=== PATIENT | female | born 1975 ===

== ENCOUNTER 2017-12-29 12:22 | Emergency (ER) | payer MEDICAID ==
[2017-12-29 12:44] VITALS: BP 120/84; TEMP 98.2
[2017-12-29 12:57] VITALS: O2SAT 100
--- NOTE | 2017-12-29 13:00 | C.PDOC ---
History Of Present Illness 42 y/o female presents to ED c/o chest pain, and shortness of breath since yesterday. Notes she had to miss work yesterday because of her symptoms. Denies fever or other complaints. Time Seen by Provider: 12/29/17 12:47 Chief Complaint (Nursing): Shortness Of Breath History Per: Patient History/Exam Limitations: no limitations Past Medical History Reviewed: Historical Data, Nursing Documentation, Vital Signs Vital Signs: Last Vital Signs Temp 98.2 F 12/29/17 12:41 Pulse 66 12/29/17 13:30 Resp 17 12/29/17 13:30 BP 120/84 12/29/17 12:41 Pulse Ox 100 12/29/17 13:30 - Medical History PMH: Asthma Family History: States: Unknown Family Hx - Social History Hx Tobacco Use: Yes Hx Alcohol Use: Yes Hx Substance Use: No - Immunization History Hx Tetanus Toxoid Vaccination: No Hx Influenza Vaccination: No Hx Pneumococcal Vaccination: No Review Of Systems Except As Marked, All Systems Reviewed And Found Negative. Constitutional: Negative for: Fever, Chills Cardiovascular: Positive for: Chest Pain Respiratory: Positive for: Shortness of Breath Physical Exam - Physical Exam Appears: Non-toxic, No Acute Distress, Other (Pt is taking selfie in her bed) Skin: Normal Color, Warm, Dry Head: Atraumatic, Normacephalic Eye(s): bilateral: Normal Inspection Neck: Normal ROM, Supple Chest: Symmetrical Cardiovascular: Rhythm Regular, No Murmur Respiratory: Normal Breath Sounds, No Rales, No Rhonchi, No Wheezing Gastrointestinal/Abdominal: Soft, No Tenderness Extremity: Normal ROM Neurological/Psych: Oriented x3, Normal Speech ED Course And Treatment ECG: Interpreted By Me, Viewed By Me ECG Rhythm: Sinus Rhythm Rate From EC O2 Sat by Pulse Oximetry: 100 Pulse Ox Interpretation: Normal Medical Decision Making Medical Decision Making: Pt refused work up. Pt is requesting excuse note for work. The patient declines to have further medical evaluation and treatment and wishes to leave the Emergency Department. This action is against my medical advice to the patient, and with informed refusal. The patient was told that evaluation and treatment are necessary and a full explanation of the rationale was given. The risks of leaving were explained to the patient and include, but are not limited to, worsening of known or currently unknown conditions, permanent disability and from undiagnosed or untreated conditions The patient has the capacity to make this informed decision and understands the clinical situation and my explanation of the risks of leaving. The patient voluntarily accepts these risks , and a signed AMA form documenting our conversation was obtained. The patient was given the opportunity to ask questions and reconsider. The patient was encouraged to return to the Emergency Department at any time for further care. Disposition - Disposition Referrals: Juancarlos Ramsey MD [Staff Provider] - Disposition: AGAINST MEDICAL ADVICE Disposition Time: 12:58 Condition: UNKNOWN Additional Instructions: return to er with worsening symptoms or concerns. you are declining all labs and imaging. you are able to return to any er with worsening symtoms or concerns. Forms: [facility] ([place]), Work Excuse - Clinical Impression Clinical Impression: Chest pain, Encounter to obtain excuse from work, Left against medical advice - Scribe Statement The provider has reviewed the documentation as recorded by the Scribe KP All medical record entries made by the Scribe were at my direction and personally dictated by me. I have reviewed the chart and agree that the record accurately reflects my personal performance of the history, physical exam, medical decision making, and the department course for this patient. I have also personally directed, reviewed, and agree with the discharge instructions and disposition.
[2017-12-29 13:39] VITALS: PULSE 66; RESP 17
== END 2017-12-29 13:30 | disposition left against medical advice (07) ==
LOC: C.ER 12:22
DX: R07.9 Chest pain, unspecified (principal)

== ENCOUNTER 2018-01-21 15:51 | Emergency (ER) | payer MEDICAID ==
[2018-01-21 16:06] VITALS: BMI 33.9
--- NOTE | 2018-01-21 16:59 | C.PDOC ---
History Of Present Illness 42yo female, otherwise well, comes to ER stating she had an episode of chest pain, described as chest tightness, with associated shortness of breath while at work. Patient also reports nausea and states her "throat and mouth went dry. " She denies any chest pain at present, and denies any vomiting, weakness, and offers no additional medical complaints. Time Seen by Provider: 01/21/18 16:21 Chief Complaint (Nursing): Chest Pain History Per: Patient History/Exam Limitations: no limitations Onset/Duration Of Symptoms: Hrs Current Symptoms Are (Timing): Gone Quality: Tightness Associated Symptoms: Nausea. denies: Dyspnea, Diaphoresis, Syncope Additional History Per: Patient Past Medical History Reviewed: Historical Data, Nursing Documentation, Vital Signs Vital Signs: Last Vital Signs Temp 98.2 F 01/21/18 16:12 Pulse 81 01/21/18 17:46 Resp 16 01/21/18 17:46 BP 148/73 01/21/18 17:46 Pulse Ox 98 01/21/18 19:00 - Medical History PMH: Asthma Surgical History: No Surg Hx Family History: States: Unknown Family Hx - Social History Hx Tobacco Use: Yes Hx Alcohol Use: Yes Hx Substance Use: Yes (weed) - Immunization History Hx Tetanus Toxoid Vaccination: No Hx Influenza Vaccination: No Hx Pneumococcal Vaccination: No Review Of Systems Except As Marked, All Systems Reviewed And Found Negative. Constitutional: Negative for: Fever, Chills Cardiovascular: Positive for: Chest Pain Respiratory: Positive for: Shortness of Breath Gastrointestinal: Positive for: Nausea. Negative for: Vomiting, Abdominal Pain Neurological: Negative for: Weakness, Numbness Physical Exam - Physical Exam Appears: Non-toxic, No Acute Distress Skin: Normal Color, Warm Head: Atraumatic, Normacephalic Eye(s): bilateral: Normal Inspection Oral Mucosa: Moist Neck: Normal ROM, Supple Chest: Symmetrical, No Tenderness Cardiovascular: Rhythm Regular Respiratory: Normal Breath Sounds, No Rales, No Rhonchi, No Wheezing Gastrointestinal/Abdominal: Normal Exam, Soft, No Tenderness Back: Normal Inspection Extremity: Normal ROM, No Pedal Edema Neurological/Psych: Oriented x3 ED Course And Treatment - Laboratory Results Result Diagrams: 01/21/18 17:07 01/21/18 17:07 ECG: Interpreted By Me, Viewed By Me ECG Rhythm: Sinus Rhythm ECG Interpretation: Normal Interpretation Of ECG: Normal intervals. Normal axis. No ST/T wave abnormalities Rate From EC O2 Sat by Pulse Oximetry: 98 (RA) Pulse Ox Interpretation: Normal Medical Decision Making Medical Decision Making: Assessment: Chest tightness, shortness of breath Plan: * Labs * EKG * Aspirin 81mg PO * Urinalysis 19:00 Labs reviewed, no clinically significant findings noted. Patient to be signed out to Dr. Baker pending repeat troponin at 9p and final disposition. Disposition Discussed With : Fidencio Baker Doctor Will See Patient In The: ED - Disposition Disposition Time: 19:00 Condition: STABLE Forms: [employer] (Turkmen) - Clinical Impression Clinical Impression: Chest pain - Scribe Statement The provider has reviewed the documentation as recorded by the Ivone Aguero Provider Attestation: All medical record entries made by the Benedictoibgalen were at my direction and personally dictated by me. I have reviewed the chart and agree that the record accurately reflects my personal performance of the history, physical exam, medical decision making, and the department course for this patient. I have also personally directed, reviewed, and agree with the discharge instructions and disposition. Physician Patient Turnover Patient Signed Over To: Fidencio Baker Handoff Comments: pending 2nd troponin, reevaluation and disposition
--- NOTE | 2018-01-21 17:04 | RAD ---
HISTORY: shortness of breath COMPARISON: No prior. TECHNIQUE: Chest PA and lateral FINDINGS: LINES AND TUBES: None. LUNG AND PLEURA: The lungs are well inflated and clear. No pleural effusion or pneumothorax. HEART AND MEDIASTINUM: The heart is not enlarged. The hilar and mediastinal contours are within normal limits. SKELETAL STRUCTURES: The bony structures are within normal limits for the patient's age. VISUALIZED UPPER ABDOMEN: Normal. OTHER FINDINGS: None. IMPRESSION: No active pulmonary disease.
[2018-01-21 17:11] LABS: BASO % 0.3 % (0.0-2.0); EOS # 0.1 K/uL (0.0-0.7); EOS % 0.6 % (0.0-4.0); HEMOGLOBIN 10.9 g/dL (11.0-16.0); LYMPH # 1.6 K/uL (1.0-4.3); LYMPH % 17.3 % (20.0-40.0); MEAN CORPUSCULAR HEMOGLOBIN 23.7 pg (27.0-31.0); MEAN CORPUSCULAR HGB CONC 32.2 g/dL (33.0-37.0); MEAN PLATELET VOLUME 9.4 fL (7.2-11.7); NEUT # 6.6 K/uL (1.8-7.0); NEUT % 70.8 % (50.0-75.0); RBC 4.6 Mil/uL (3.80-5.20); RED CELL DISTRIBUTION WIDTH 17.8 % (11.5-14.5); WHITE BLOOD COUNT 9.3 K/uL (4.8-10.8)
[2018-01-21 17:20] LABS: MEAN CELL VOLUME 73.6 fL (81.0-99.0)
[2018-01-21 17:28] LABS: ALB/GLOB RATIO 1.4 (1.0-2.1); ALBUMIN 4.4 g/dL (3.5-5.0); ALT/SGPT 33 U/L (9-52); AST/SGOT 28 U/L (14-36); BLOOD UREA NITROGEN 15 mg/dL (7-17); CALCIUM 9.7 mg/dl (8.6-10.4); GFR NON-AFRICAN AMERICAN 54
[2018-01-21 17:36] LABS: B-TYPE NATRIURETIC PEPTIDE 67.7 pg/mL (0-450)
[2018-01-21 17:37] LABS: SQUAMOUS EPITHIAL 5 /hpf (0-5); URINE BILIRUBIN NEGATIVE (NEGATIVE); URINE BLOOD NEGATIVE (NEGATIVE); URINE CLARITY Hazy (Clear); URINE COLOR Yellow (YELLOW); URINE GLUCOSE (UA) NORMAL (Normal); URINE LEUKOCYTE ESTERASE NEG Leu/uL (Negative); URINE PROTEIN NEGATIVE (NEGATIVE); URINE UROBILINOGEN NORMAL mg/dL (0.2-1.0)
[2018-01-21 19:21] VITALS: TEMP 98.1
[2018-01-21 20:25] VITALS: BP 126/74; PULSE 80; RESP 18; O2SAT 99
[2018-01-21 21:08] LABS: CK-MB 0.89 ng/mL (0.0-3.38)
--- NOTE | 2018-01-22 18:32 | CARD ---
APPROVED REPORT Date of service: 01/21/2018 EKG Measurement Heart [id number] <Conclusion> Normal sinus rhythm Possible Left atrial enlargement Borderline ECG
== END 2018-01-21 21:27 | disposition home or self-care (01) ==
LOC: C.ER 15:51
DX: R07.9 Chest pain, unspecified (principal); J45.909 Unspecified asthma, uncomplicated; F17.210 Nicotine dependence, cigarettes, uncomplicated